=== PATIENT | male | born 1970 | race Caucasian/White ===

== ENCOUNTER 2023-06-17 10:58 | Inpatient (IN) | payer OTHER, SELFPAY ==
[2023-06-17] VITALS (13 sets, daily range): BP systolic 109–129; BP diastolic 60–93; PULSE 66–77; RESP 16–18; TEMP 36.7–37.3; O2SAT 94–100; BMI 21.2; BMI 21.8
--- NOTE | 2023-06-17 11:20 | ED.VIS.LOWEX ---
HPI History of Present Illness Chief Complaint: Lower Extremity Injury Informant: patient and spouse/S.O. Narrative Narrative: 52-year-old male presenting to the emergency room with a painful swollen left knee. Patient states that yesterday he was riding his bike. He did not notice any discomfort in the knee but over the course of an hour after getting done riding he noted swelling of the knee. He notes it is painful for him to fully straighten the knee. He thinks he may have been bitten by an insect over the medial aspect. He states they had somebody come out to the house last night that specializes in cuevas and bites and they thought that it could possibly be a reaction to that. This morning they went to the [facility] where he had a 2 view knee x-ray that showed joint effusion and he was sent to the emergency department for further evaluation. He denies any fever. He denies any prior surgeries on that joint. He denies any surgical hardware elsewhere in his body. He notes he really has not had much difficulty with his knee in the past. [facility] Medical History (Updated 06/17/23 @ 15:[address] Barrington Dudley DO) Hypertrophic cardiomyopathy Home Medications NK 06/17/23 [History Last Taken Unknown] Allergy/AdvReac Type Severity Reaction Status Date / Time No Known Allergies Allergy Verified 06/17/23 11:00 Family History (Updated 06/17/23 @ 15:[address] Barrington Dudley DO) Other Hypertrophic cardiomyopathy Surgical History no surgical history Social History Smoking Status: Never smoker ROS [facility] ED Constitutional Constitutional ED: Denies chills, fever(s) or weight loss Eyes Eyes: Denies change in vision or diplopia ENT ENT ED: Denies ear pain, rhinorrhea or sore throat Cardiovascular Cardiovascular: Denies chest pain, orthopnea, palpitations or racing heartbeat Respiratory/Chest Respiratory/Chest: Denies cough, dyspnea or orthopnea Gastrointestinal Gastrointestinal: Denies abdominal pain, diarrhea, nausea or vomiting Genitourinary Genitourinary ED: Denies dysuria, hematuria or urinary frequency Musculoskeletal Musculoskeletal: Reports other Details: Swollen painful left knee ; Denies arthralgias or myalgias Integumentary Reports other Details: Possible insect bite left knee ; Denies abscess or rash Neurologic Neurologic: Denies headache(s) or weakness Psychiatric Psychiatric: Denies anxiety, depression, suicidal ideation or suicidal thoughts Endocrine Endocrinology: Denies polydipsia, polyphagia or polyuria Allergic/Immunologic Allergic/Immunologic ED: Denies mouth swelling, tongue swelling or urticaria EXAM Physical Exam Const Vital Signs: 06/17/23 10:59 06/17/23 11:01 06/17/23 13:00 Temperature 98.0 F Temperature Source Temporal Pulse Rate 74 74 75 Respiratory Rate 16 16 18 Blood Pressure 109/93 H 109/93 H 120/66 Blood Pressure Mean 98 98 84 Pulse Ox 100 100 95 Oxygen Delivery Method Room Air Room Air 06/17/23 13:34 06/17/23 13:45 06/17/23 13:46 Temperature Temperature Source Pulse Rate Respiratory Rate Blood Pressure 115/60 Blood Pressure Mean 77 Pulse Ox 94 94 Oxygen Delivery Method 06/17/23 14:17 06/17/23 14:30 06/17/23 14:45 Temperature Temperature Source Pulse Rate Respiratory Rate Blood Pressure 129/72 H 122/77 H 119/80 Blood Pressure Mean 88 89 91 Pulse Ox Oxygen Delivery Method 06/17/23 15:00 Temperature Temperature Source Pulse Rate Respiratory Rate Blood Pressure 119/69 Blood Pressure Mean 83 Pulse Ox Oxygen Delivery Method Positive well nourished and well developed General Appearance ED: well developed and NAD HEENT Reports normocephalic, head/scalp atraumatic and moist mucous membranes Eyes PERRL and EOMs intact bilaterally Neck full ROM, no lymphadenopathy, supple and no JVD Resp normal respiratory effort and clear to auscultation bilaterally Cardio regular rate, regular rhythm and no murmurs GI normal to inspection, nondistended, normoactive bowel sounds and non-tender Palpation: soft Back/Spine no CVA tenderness and normal ROM Extremity Extremity Narrative: The left knee does palpate a joint effusion. There is loss of normal contours of the patella. There is some mild erythema and excoriated 1 to 2 mm spot on the medial aspect of the knee that is surrounded by approximately 4 cm of blanching erythema.. The knee joint itself is not hot or warm to the touch. There is no distal swelling. He prefers to keep the knee in a slightly flexed position. He is able to fully straighten it though he notes discomfort. His position of comfort is about 15 degrees of knee flexion. General Extremety ED: Negative for edema General Extremity: Negative for edema Neuro oriented x3 and CN's II-XII intact bilaterally Sensorium / Orientation: alert Motor Exam: strength 5/5 throughout Psych mental status grossly normal Mood & Affect: Negative for depressed or tearful Skin Trauma: Negative for abrasion or laceration MDM MDM MDM Narrative Medical decision making narrative: Patient provided informed written consent for arthrocentesis. The entirety of the knee and surrounding area was prepped with Betadine and allowed to dry. It was draped with sterile towels. Using sterile technique a small wheal was raised over the lateral superior aspect of the knee joint. An 18-gauge needle was then used to enter the joint space and approximately 72 cc of yellow fluid was removed. This was sent to the lab for analysis. The knee was then washed to remove the Betadine Band-Aid applied as well as Dipak wrap. Laboratory analysis demonstrates no crystals. 56.6 thousand white cells were noted. Gram stain shows no bacteria. I spoke with orthopedics. White count is 8.1 with 71.6% neutrophils. ESR 15. Glucose 93 creatinine 0.79. Concern is for possible septic arthritis. Recommendation is for admission with IV antibiotics versus outpatient follow-up on antibiotics tomorrow morning. I spoke with the patient and his . The preference would be for admission History & Record Review Discussion w/independent historian: Patient and Family Lab Data Attestation: I reviewed the patient's lab results. Labs: Laboratory Results - last 24 hr 06/17/23 06/17/23 11:50 15:00 WBC 8.1 RBC 4.36 L Hgb 13.1 Hct 39.5 L MCV 90.6 MCH 30.0 MCHC 33.2 RDW Std Deviation 44.7 H RDW Coeff of Ramon 13.5 Plt Count 195 MPV 8.9 Immature Gran % (Auto) 0.200 Neut % (Auto) 71.6 H Lymph % (Auto) 14.7 L [place] % (Auto) 12.3 H Eos % (Auto) 1.0 Baso % (Auto) 0.2 Absolute Neuts (auto) 5.8 Absolute Lymphs (auto) 1.18 Nucleated RBC % 0 ESR 15 Sodium 138 Potassium 3.9 Chloride 107 Carbon Dioxide 27.0 Anion Gap 4 L BUN 16 Creatinine 0.79 Estim Creat Clear Calc 96.01 Est GFR (MDRD) Af Amer 131 Est GFR (MDRD) Non-Af 108 BUN/Creatinine Ratio 20.2 H Glucose 93 Calcium 9.1 Fluid Crystals NO CRYSTALS SEEN Fluid Crystal Source SYNOVIAL Fl Crystal Path Review Will follow Synovial Source Not Reportable Synovial Color Yellow Synovial Appearance Purulent Synovial Viscosity Mod. Viscous Synovial WBC 56.5900 H Synovial RBC 0.[address] H Synovial Tot Cell Ct 56.6280 H Synov Polynuclear WBCs 57.347 Synov Mononuclear WBCs 3.337 Synovial Neutrophils 91 H Synovial Lymphocytes 2 Synovial Monocytes 7 Synovial Polynuclear % 94.5 Synovial Mononuclear % 5.[address] Comment Reviewed Management Discussion w/another healthcare provider: Hospitalist (Dr. Dudley) and [employer] (Orthopedics (Dr. Vanessa Price)) Discharge Plan Dx/Rx/DC Orders Clinical Impression: Effusion, left knee, Acute pain of left knee Disposition Disposition: Acute Care [facility]
[2023-06-17] MEDS: Lidocaine 1% (20 ml mdv) 20 ML Vial INFILT (11:40)
[2023-06-17 12:35] LABS: Synovial Fld Mononuclear WBC # 3.337 10^3/ul; Synovial Fld Mononuclear WBC % 5.5 %; Synovial Fld Polynuclear WBC # 57.347 10^3/uL; Synovial Fld Polynuclear WBC % 94.5 %
[2023-06-17 12:40] LABS: RBC /Synovial Fluid 0.003 10^6/uL (0)
[2023-06-17 13:16] LABS: AUTO B FLUID DILUENT BKGD CT WBC <0.1 RBC <0.01 (W<.1,R<.01); CRYSTALS, BODY FLUID NO CRYSTALS SEEN
[2023-06-17 13:17] LABS: Appearance /Synovial Fluid Purulent (CLEAR); Color / Synovial Fluid Yellow (Pale Yellow); Source- Body Fluid SYNOVIAL; Viscosity / Synovial Fluid Mod. Viscous (HIGH)
[2023-06-17 13:39] LABS: Lymph 2 %; Monocyte /Synovial Fluid 7 %; Neutrophil 91 % (0-25)
[2023-06-17 13:42] LABS: Pathologist Review Will follow
[2023-06-17] MEDS: Ceftriaxone 1 GM/50 ML BAG IV (15:24)
[2023-06-17 15:27] LABS: Erythrocyte Sedimentation Rate 15 mm/hr (0-20)
[2023-06-17 15:30] LABS: Absolute Lymphocyte Count 1.18 X10^3/uL (0.83-4.51); Absolute Neutrophil Count 5.8 X10^3/uL (2.0-7.7); Basophil# 0.02 X10^3/uL; Basophil% 0.2 % (0-1); Eosinophil# 0.08 X10^3/uL; Hematocrit 39.5 % (40-54); Hemoglobin 13.1 g/dL (13.0-16.5); Lymphocyte # 1.18 X10^3/ul (0.83-4.51); Lymphocyte % 14.7 % (19-41); Mean Corp Hgb Conc 33.2 g/dL (32-36); Mean Corpuscular Volume 90.6 fL (80-94); Mean Platelet Vol. 8.9 fl (6.2-12.0); Monocyte# 0.99 X10^3/uL; Monocyte% 12.3 % (0-10); NRBC Flagged by Analyzer 0 % (0-5); Neutrophil # 5.76 X10^3/uL (2.7-7.7); Neutrophil % 71.6 % (47-70); Platelet Count 195 K/mm3 (150-450); RBC Distribution Width CV 13.5 % (11.6-14.6); RBC Distribution Width SD 44.7 fl (35.1-43.9); Red Blood Count 4.36 M/mm3 (4.6-6.2); White Blood Count 8.1 K/mm3 (4.4-11.0)
[2023-06-17 15:39] LABS: Anion Gap 4 (5-15); BUN 16 mg/dL (7-18); BUN/Creat Ratio 20.2 RATIO (10-20); Calcium,Total 9.1 mg/dL (8.5-10.1); Chloride 107 mmol/L (98-107); Creatinine, Serum 0.79 mg/dL (0.70-1.30); EST Glomerular Filtration Rate 108 mL/min (>60); Est Glom Filt Rate - Afr Amer 131 mL/min (>60); Estimated Creatinine Clearance 96.01 ml/min; Glucose 93 mg/dL (74-106); Potassium 3.9 mmol/L (3.5-5.1); Sodium Level 138 mmol/L (136-145)
--- NOTE | 2023-06-17 15:39 | HP.PCM.HOS_ITS ---
HPI - General General Date of Service: 06/17/23 Chief Complaint: Left knee effusion HPI Narrative PAIGE ORELLANA, is a 52 M who presents with left knee pain and swelling. Symptoms began last night and progressed throughout the day. Patient denies any trauma. Thinks that he may have had a bug bite on his leg that may have precipitated this. Patient presented to the emergency room and he underwent an arthrocentesis that showed white count of 56.6 thousand. Patient received ceftriaxone and vancomycin in the emergency room. The emergency room physician spoke with Dr. Golden Price who said he would see the patient in consultation. [facility] Medical History (Updated 06/17/23 @ 15:[address] Barrington Dudley DO) Hypertrophic cardiomyopathy Home Medications NK 06/17/23 [History Last Taken Unknown] Allergy/AdvReac Type Severity Reaction Status Date / Time No Known Allergies Allergy Verified 06/17/23 11:00 Family History (Updated 06/17/23 @ 15:[address] Barrington Dudley DO) Other Hypertrophic cardiomyopathy no surgical history Social History Smoking Status: Never smoker ROS ROS Narrative All review of systems were negative except as mentioned above in the history of present illness and the other review of systems. Vital Signs Vital Signs Vital Signs: 06/17/23 10:59 06/17/23 11:01 06/17/23 13:00 Temperature 36.7 C Temperature Source Temporal Pulse Rate 74 74 75 Respiratory Rate 16 16 18 Blood Pressure 109/93 H 109/93 H 120/66 Blood Pressure Mean 98 98 84 Pulse Ox 100 100 95 Oxygen Delivery Method Room Air Room Air 06/17/23 13:34 06/17/23 13:45 06/17/23 13:46 Temperature Temperature Source Pulse Rate Respiratory Rate Blood Pressure 115/60 Blood Pressure Mean 77 Pulse Ox 94 94 Oxygen Delivery Method 06/17/23 14:17 06/17/23 14:30 06/17/23 14:45 Temperature Temperature Source Pulse Rate Respiratory Rate Blood Pressure 129/72 H 122/77 H 119/80 Blood Pressure Mean 88 89 91 Pulse Ox Oxygen Delivery Method 06/17/23 15:00 Temperature Temperature Source Pulse Rate Respiratory Rate Blood Pressure 119/69 Blood Pressure Mean 83 Pulse Ox Oxygen Delivery Method Weight Weight: 63.503 kg Body Mass Index (BMI) 21.2 Physical Exam Const alert and no apparent distress HEENT normocephalic and head/scalp atraumatic Resp normal respiratory effort, no retractions, no use of accessory muscles and clear to auscultation bilaterally Cardio regular rate, regular rhythm, S1 normal heart sound and S2 normal heart sound GI normal to inspection, nondistended, normoactive bowel sounds, soft to palpation, non-tender, non-distended and hepatosplenomegaly Extremity Extremity Narrative: Left knee with swelling as compared to the right. Not warm nor red. Neuro Sensorium / Orientation: awake and alert Results Lab / Micro Data 06/17/23 15:00 06/17/23 15:00 Labs: Laboratory Results - last 24 hr 06/17/23 11:50: Fluid Crystals NO CRYSTALS SEEN, Fluid Crystal Source SYNOVIAL, Fl Crystal Path Review Will follow, Synovial Source Not Reportable, Synovial C olor Yellow, Synovial Appearance Purulent, Synovial Viscosity Mod. Viscous, Synovial WBC 56.5900 H, Synovial RBC 0.003 H, Synovial Tot Cell Ct 56.6280 H, Synov Polynuclear WBCs 57.347, Synov Mononuclear WBCs 3.337, Synovial Neutrophils 91 H, Synovial Lymphocytes 2, Synovial Monocytes 7, Synovial Polynuclear % 94.5, Synovial Mononuclear % 5.5, Synovial Path Comment May follow 06/17/23 15:00: WBC 8.1, RBC 4.36 L, Hgb 13.1, Hct 39.5 L, MCV 90.6, MCH 30.0, MCHC 33.2, RDW Std Deviation 44.7 H, RDW Coeff of Ramon 13.5, Plt Count 195, MPV 8.9, Immature Gran % (Auto) 0.200, Neut % (Auto) 71.6 H, Lymph % (Auto) 14.7 L, [place] % (Auto) 12.3 H, Eos % (Auto) 1.0, Baso % (Auto) 0.2, Absolute Neuts (auto) 5.8, Absolute Lymphs (auto) 1.18, Nucleated RBC % 0, ESR 15, Sodium 138, Potassium 3.9, Chloride 107, Carbon Dioxide 27.0, Anion Gap 4 L, BUN 16, Creatinine 0.79, Estim Creat Clear Calc 96.01, Est GFR (MDRD) Af Amer 131, Est GFR (MDRD) Non-Af 108, BUN/Creatinine Ratio 20.2 H, Glucose 93, Calcium 9.1 Micro: Microbiology 06/17/23 11:50 Fluid - Synovial (joint) Gram Stain - Final Assessment & Plan Assessment/Plan (1) Septic arthritis of knee, left: PLAN: Plan Suspected septic arthritis of the left knee * White count on the synovial fluid was 56,000, culture pending. Crystals negative. * Patient received vancomycin and ceftriaxone in the emergency room. Will continue vancomycin * Consult infect disease as well as orthopedics. Hypertrophic cardiomyopathy * Per history patient was checked because of his family history. On no current medications. Recommend outpatient cardiology follow-up. VTE prophylaxis with SCDs. Holding chemical prophylaxis in anticipation of potential surgery. Charges/Coding Visit Charges Inpatient E&M: 21268 Init Hosp L2
[2023-06-17] MEDS: Vancomycin HCl 1,500 MG in 0.9% Normal Saline (500mL Bag) 500 ML 250 MG IV (15:42)
--- NOTE | 2023-06-17 16:00 | NURSING ---
MED SURG RUDOLPH LT KNEE EFFUSION
[2023-06-17 16:12] LABS: Pathologist Comment Reviewed
--- NOTE | 2023-06-17 17:03 | PCM.RX.CS ---
Consult Antibiotic Management Pharmacy has been consulted to manage selected antibiotic: Vancomycin Type of Intervention Type of Consult: New start Suspected Infection Suspected Infection: Other (septic arthritis) Labs Labs: Sodium 138 mmol/L (136-145) 06/17/23 15:00 Potassium 3.9 mmol/L (3.5-5.1) 06/17/23 15:00 Chloride 107 mmol/L (98-107) 06/17/23 15:00 Carbon Dioxide 27.0 mmol/L (21.0-32.0) 06/17/23 15:00 Anion Gap 4 (5-15) L 06/17/23 15:00 BUN 16 mg/dL (7-18) 06/17/23 15:00 Creatinine 0.79 mg/dL (0.70-1.30) 06/17/23 15:00 Est GFR (MDRD) Af Amer 131 mL/min (>60) 06/17/23 15:00 Est GFR (MDRD) Non-Af 108 mL/min (>60) 06/17/23 15:00 BUN/Creatinine Ratio 20.2 RATIO (10-20) H 06/17/23 15:00 Glucose 93 mg/dL (74-106) 06/17/23 15:00 Microbiology Microbiology: Microbiology 06/17/23 11:50 Fluid - Synovial (joint) Gram Stain - Final Pharmacy Plan for Drug Dosing Pharmacy Plan for Drug Dosing: NEW START IV VANCOMYCIN Consulting Physician: RUDOLPH Indication: Septic arthritis Goal Trough: 15-20 mg/dL SrCr: 0.79 mg/dl CrCl: 96 ml/min Comments: initial dose given of 1500mg given 06/16 @ 1542 Vancomycin Dose: Will start 1250mg q12 and get a trough prior to 4th total dose Pending Level: 06/19/23 @ 0330 Pharmacy Service will continue to monitor and adjust dosing as required.
--- NOTE | 2023-06-17 18:58 | CON.PCM.OR_ITS ---
HPI Consult Data Date of Consult: 06/17/23 HPI Narrative HPI Narrative: PAIGE ORELLANA, is a 52 M who presents with left knee pain and swelling. He states on June 16, 2023 he was noticing knee stiffness and discomfort primarily at the medial knee. Swelling and pain increased up to 9 out of 10. Patient did try some pain relieving salve that may have made things worse. They had a burn specialist to help them with some salve that did not help. He denies pu ncturing the skin. He denies trauma. He denies any other known sites of infection. Pain currently 3 out of 10. Knee stiffness slightly better after aspiration. He denies previous knee injections. He does have a history of some mild knee arthritis treated with shockwave treatments about 1 year ago. [facility] Medical History Hypertrophic cardiomyopathy Home Medications NK 06/17/23 [History Last Taken Unknown] Allergy/AdvReac Type Severity Reaction Status Date / Time No Known Allergies Allergy Verified 06/17/23 11:00 Family History Other Hypertrophic cardiomyopathy Surgical History no surgical history Social History Smoking Status: Never smoker ROS ROS Narrative Patient does wear eyeglasses. He denies any recent changes to eyes ears nose or throat heart or lungs bowel or bladder. Denies any infections Vital Signs Vital Signs Vital Signs: 06/17/23 10:59 06/17/23 11:01 06/17/23 13:00 Temperature 98.0 F Temperature Source Temporal Pulse Rate 74 74 75 Respiratory Rate 16 16 18 Respiratory Effort Respiratory Depth Respiratory Pattern Blood Pressure 109/93 H 109/93 H 120/66 Blood Pressure Mean 98 98 84 Blood Pressure Source Blood Pressure Position Blood Pressure Location Pulse Ox 100 100 95 Oxygen Delivery Method Room Air Room Air 06/17/23 13:34 06/17/23 13:45 06/17/23 13:46 Temperature Temperature Source Pulse Rate Respiratory Rate Respiratory Effort Respiratory Depth Respiratory Pattern Blood Pressure 115/60 Blood Pressure Mean 77 Blood Pressure Source Blood Pressure Position Blood Pressure Location Pulse Ox 94 94 Oxygen Delivery Method 06/17/23 14:17 06/17/23 14:30 06/17/23 14:45 Temperature Temperature Source Pulse Rate Respiratory Rate Respiratory Effort Respiratory Depth Respiratory Pattern Blood Pressure 129/72 H 122/77 H 119/80 Blood Pressure Mean 88 89 91 Blood Pressure Source Blood Pressure Position Blood Pressure Location Pulse Ox Oxygen Delivery Method 06/17/23 15:00 06/17/23 16:17 06/17/23 16:43 Temperature 98.3 F 98.3 F Temperature Source Oral Pulse Rate 77 71 Respiratory Rate 16 18 Respiratory Effort Respiratory Depth Respiratory Pattern Blood Pressure 119/69 121/80 H 125/79 H Blood Pressure Mean 83 93 94 Blood Pressure Source Monitor Blood Pressure Position Semi-Fowlers Blood Pressure Location Right Arm Pulse Ox 99 96 Oxygen Delivery Method Room Air 06/17/23 16:56 Temperature Temperature Source Pulse Rate Respiratory Rate Respiratory Effort Normal Non-Labored Respiratory Depth Normal Respiratory Pattern Normal Blood Pressure Blood Pressure Mean Blood Pressure Source Blood Pressure Position Blood Pressure Location Pulse Ox Oxygen Delivery Method Room Air Weight Weight: 65.091 kg Body Mass Index (BMI) 21.8 Physical Exam Narrative Left knee has a large effusion. Left knee motion is 10-80 degrees. Left knee has some warmth and redness. No expressible drainage. Skin is intact. No calf pain or swelling. Negative Homans' sign. Legs are neurovascular intact. He is able to easily do a straight leg raise on the left. No hip pain with motion. X-rays reviewed showing knee effusion, no obvious acute fracture or dislocation. No severe arthritis. Laboratory work reviewed showing an elevated synovial white blood cell count of 56,000. 91% neutrophils. ESR within normal limits at 15. Lab / Micro Data Attestation: I reviewed the patient's lab results. 06/17/23 15:00 06/17/23 15:00 Labs: Laboratory Results - last 24 hr 06/17/23 11:50: Fluid Crystals NO CRYSTALS SEEN, Fluid Crystal Source SYNOVIAL, Fl Crystal Path Review Will follow, Synovial Source Not Reportable, Synovial Color Yellow, Synovial Appearance Purulent, Synovial Viscosity Mod. Viscous, Synovial WBC 56.5900 H, Synovial RBC 0.003 H, Synovial Tot Cell Ct 56.6280 H, Synov Polynuclear WBCs 57.347, Synov Mononuclear WBCs 3.337, Synovial Neutrophil s 91 H, Synovial Lymphocytes 2, Synovial Monocytes 7, Synovial Polynuclear % 94.5, Synovial Mononuclear % 5.5, Synovial Path Comment Reviewed 06/17/23 15:00: WBC 8.1, RBC 4.36 L, Hgb 13.1, Hct 39.5 L, MCV 90.6, MCH 30.0, MCHC 33.2, RDW Std Deviation 44.7 H, RDW Coeff of Ramon 13.5, Plt Count 195, MPV 8.9, Immature Gran % (Auto) 0.200, Neut % (Auto) 71.6 H, Lymph % (Auto) 14.7 L, [place] % (Auto) 12.3 H, Eos % (Auto) 1.0, Baso % (Auto) 0.2, Absolute Neuts (auto) 5.8, Absolute Lymphs (auto) 1.18, Nucleated RBC % 0, ESR 15, Sodium 138, Potassium 3.9, Chloride 107, Carbon Dioxide 27.0, Anion Gap 4 L, BUN 16, Creatinine 0.79, Estim Creat Clear Calc 96.01, Est GFR (MDRD) Af Amer 131, Est GFR (MDRD) Non-Af 108, BUN/Creatinine Ratio 20.2 H, Glucose 93, Calcium 9.1 Micro: Microbiology 06/17/23 11:50 Fluid - Synovial (joint) Gram Stain - Final Assessment & Plan Assessment/Plan (1) Acute pain of left knee: (2) Effusion, left knee: PLAN: His diagnosis and treatment options regarding his painful left knee effusion discussed with him at length. He understands this may be an acute bacterial infection involving his left knee joint. Possibility of gout or other inflammatory process also discussed. He understands at this point we are tentatively planning on arthroscopic irrigation debridement of his left knee tomorrow. Possible drain placement. patient had eaten just prior to coming to the emergency room this afternoon. Risk of surgery including but not limited to from operative or postoperative complications. Risk of anesthetic complications such as heart attacks, strokes, seizures, or . Risk of infections. Risk of damage to nerves arteries tendons. Risk of inadvertent fractures or dislocations. Risk of bone or wound healing complications. Possibility of nonunion malunion pain stiffness weakness. Possible need for further surgery such as hardware removal. Risk of DVT PE and other potential complications could lead to or disability explained. No guarantees were stated or implied. All of their questions were answered. Appropriate informed consent was obtained and signed for surgical intervention. We are awaiting input from the infectious disease doctor. I will repeat a ESR in the morning. Also order a CRP. Also repeat CBC. Cultures are pending, knee fluid and blood cultures.
[2023-06-18] VITALS (11 sets, daily range): BP systolic 101–129; BP diastolic 62–86; PULSE 65–82; RESP 12–18; TEMP 36.3–36.9; O2SAT 93–98
[2023-06-18] MEDS: 0.9% Saline Lock 10 ML Syringe IV ×2 (04:00→11:10)
[2023-06-18] MEDS: Vancomycin HCl 1,250 MG in 0.9% Normal Saline (250mL Bag) 250 ML 167 MG IV ×2 (04:00→16:54)
--- NOTE | 2023-06-18 05:55 | EKG12_ITS ---
Test Reason : PRE OP Blood Pressure : / mmHG Vent. Rate : 080 BPM Atrial Rate : 080 BPM P-R Int : 168 ms QRS Dur : 078 ms QT Int : 356 ms P-R-T Axes : 066 061 070 degrees QTc Int : 410 ms Normal sinus rhythm Minimal voltage criteria for LVH, may be normal variant ( Sokolow-Meyers ) Borderline ECG No previous ECGs available Confirmed by AARON PRICE, FRANCIS ([id number]), web editor MARIAN CARROLL ([id number]) on 06/18/2023 8:51:43 AM Referred By: Confirmed By:FRANCIS WALKER MD
[2023-06-18 06:25] LABS: Absolute Lymphocyte Count 1.25 X10^3/uL (0.83-4.51); Absolute Neutrophil Count 4.3 X10^3/uL (2.0-7.7); Basophil# 0.03 X10^3/uL; Basophil% 0.5 % (0-1); Eosinophil# 0.16 X10^3/uL; Eosinophils% 2.5 % (0-5); Erythrocyte Sedimentation Rate 25 mm/hr (0-20); Hematocrit 37.7 % (40-54); Hemoglobin 12.4 g/dL (13.0-16.5); Lymphocyte # 1.25 X10^3/ul (0.83-4.51); Lymphocyte % 19.2 % (19-41); Mean Corp Hgb Conc 32.9 g/dL (32-36); Mean Corpuscular Hgb 30.2 pg (27.0-32.0); Mean Corpuscular Volume 91.7 fL (80-94); Mean Platelet Vol. 8.8 fl (6.2-12.0); Monocyte# 0.68 X10^3/uL; Monocyte% 10.5 % (0-10); NRBC Flagged by Analyzer 0 % (0-5); Neutrophil # 4.34 X10^3/uL (2.7-7.7); Neutrophil % 66.7 % (47-70); Platelet Count 186 K/mm3 (150-450); RBC Distribution Width CV 13.7 % (11.6-14.6); RBC Distribution Width SD 46.5 fl (35.1-43.9); Red Blood Count 4.11 M/mm3 (4.6-6.2); White Blood Count 6.5 K/mm3 (4.4-11.0)
[2023-06-18 06:37] LABS: Anion Gap 3 (5-15); BUN 14 mg/dL (7-18); BUN/Creat Ratio 21.1 RATIO (10-20); Calcium,Total 8.4 mg/dL (8.5-10.1); Chloride 107 mmol/L (98-107); Creatinine, Serum 0.66 mg/dL (0.70-1.30); EST Glomerular Filtration Rate 133 mL/min (>60); Est Glom Filt Rate - Afr Amer 160 mL/min (>60); Glucose 113 mg/dL (74-106); Sodium Level 138 mmol/L (136-145)
[2023-06-18] MEDS: Ceftriaxone 2 GM in 0.9% Normal Saline (50mL MB+) 50 ML IV (11:11)
--- NOTE | 2023-06-18 11:20 | CON.PCM.ID_ITS ---
Assessment & Plan Assessment/Plan (1) Septic arthritis of knee, left: PLAN: Tap shows 56k wbc, 91% neutrophils. Bcx pending. Fluid cx pending. Will cont vanc/ceftriaxone. OR planned. Will follow, thank you HPI Consult Data Date of Consult: 06/18/23 HPI Narrative Reason for Consultation: septic arthritis HPI Narrative: PAIGE ORELLANA, is a 52 M who presented 06/16 with two days of L knee pain, swelling, redness, and warmth on medial aspect. No fever or chills. Pain was moderate, sharp, worse with movement. Came to ED, seen by ortho, aspiration done, admitted on vanc/ceftriaxone. Knee feeling better slightly this AM. Full ROS performed and neg except as noted above PFSH Medical History Hypertrophic cardiomyopathy Home Medications NK 06/17/23 [History Last Taken Unknown] Allergy/AdvReac Type Severity Reaction Status Date / Time No Known Allergies Allergy Verified 06/17/23 11:00 Family History Other Hypertrophic cardiomyopathy Surgical History no surgical history Social History Smoking Status: Never smoker Physical Exam Const alert, oriented x3 and no apparent distress General Appearance: cooperative HEENT normocephalic and head/scalp atraumatic Eyes PERRL and EOMs intact bilaterally Neck supple and No nodes Resp normal air movement and clear to auscultation bilaterally Cardio regular rate and regular rhythm GI soft to palpation, non-tender and non-distended Extremity General Extremity: Negative for edema Skin Skin Narrative: L knee swelling, warmth, tenderness Neuro CN's II-XII intact bilaterally Lab / Micro Data Attestation: I reviewed the patient's lab results. 06/18/23 06:03 06/18/23 06:03 Labs: Laboratory Results - last 24 hr 06/17/23 11:50: Fluid Crystals NO CRYSTALS SEEN, Fluid Crystal Source SYNOVIAL, Fl Crystal Path Review Will follow, Synovial Source Not Reportable, Synovial Color Yellow, Synovial Appearance Purulent, Synovial Viscosity Mod. Viscous, Synovial WBC 56.5900 H, Synovial RBC 0.003 H, Synovial Tot Cell Ct 56.6280 H, Synov Polynuclear WBCs 57.347, Synov Mononuclear WBCs 3.337, Synovial Neutrophils 91 H, Synovial Lymphocytes 2, Synovial Monocytes 7, Synovial Polynuclear % 94.5, Synovial Mononuclear % 5.5, Synovial Path Comment Reviewed 06/17/23 15:00: WBC 8.1, RBC 4.36 L, Hgb 13.1, Hct 39.5 L, MCV 90.6, MCH 30.0, MCHC 33.2, RDW Std Deviation 44.7 H, RDW Coeff of Ramon 13.5, Plt Count 195, MPV 8.9, Immature Gran % (Auto) 0.200, Neut % (Auto) 71.6 H, Lymph % (Auto) 14.7 L, [place] % (Auto) 12.3 H, Eos % (Auto) 1.0, Baso % (Auto) 0.2, Absolute Neuts (auto) 5.8, Absolute Lymphs (auto) 1.18, Nucleated RBC % 0, ESR 15, Sodium 138, Potassi um 3.9, Chloride 107, Carbon Dioxide 27.0, Anion Gap 4 L, BUN 16, Creatinine 0.79, Estim Creat Clear Calc 96.01, Est GFR (MDRD) Af Amer 131, Est GFR (MDRD) Non-Af 108, BUN/Creatinine Ratio 20.2 H, Glucose 93, Calcium 9.1 06/18/23 06:03: WBC 6.5, RBC 4.11 L, Hgb 12.4 L, Hct 37.7 L, MCV 91.7, MCH 30.2, MCHC 32.9, RDW Std Deviation 46.5 H, RDW Coeff of Ramon 13.7, Plt Count 186, MPV 8.8, Immature Gran % (Auto) 0.600, Neut % (Auto) 66.7, Lymph % (Auto) 19.2, [place] % (Auto) 10.5 H, Eos % (Auto) 2.5, Baso % (Auto) 0.5, Absolute Neuts (auto) 4.3, Absolute Lymphs (auto) 1.25, Nucleated RBC % 0, ESR 25 H, Sodium 138, Potassium 4.0, Chloride 107, Carbon Dioxide 28.0, Anion Gap 3 L, BUN 14, Creatinine 0.66 L , Estim Creat Clear Calc 117.80, Est GFR (MDRD) Af Amer 160, Est GFR (MDRD) Non- Af 133, BUN/Creatinine Ratio 21.1 H, Glucose 113 H, Calcium 8.4 L, C-React Prot Ext Range 59.10 H Micro: Microbiology 06/17/23 11:50 Fluid - Synovial (joint) Gram Stain - Final
--- NOTE | 2023-06-18 11:30 | CASEMGMT ---
RN?CM?MANAGER ADMINISTRATION?CM?to room to meet with patient for initial transition planning/care coordination?assessment.?RN?CM?introduced self and role at [facility].? Pt voices understanding and consents to?assessment?at this time.? Pt resting in bed in no distress at this time.? Pt is A/O at this time and answers all questions appropriately.?? Care providers, pharmacy, and demographics verified/updated at this time. PCP: No PCP. He declines wanting list of local PCP's, stating he knows where to go, and would most likely see Dr العراقي. Specialists: None [facility]erred [facility]acy: [facility] Insurance: [facility] Prescription Benefit:?none LNOK: , Sussy Living Arrangements: Lives w/ and 2 children (ages 14 and 16) in 2-story home w/a basement and a few steps to enter. Independent @ baseline. can assist, if needed. Transportation:? Hire drivers. Brother drives. He states his brother will most likely be the one to take him home @ d/c. DME: ?States has the following DME:?Pt states he does not use AD @ his baseline. He does have a cane available that he used yesterday only. He does not have a walker. He states if he needs a walker @ d/c that he would go to the [facility] in [place] and they could stop there on his way home. He was provided w/the address and contact info. He denies need for other DME at this time. Pt states no need for further DME at this time.? HHC/SNF: No hx of either. Per ADELA Vega RN CM, Dr Lindsay/ID, states pt will most likely need IV atb's @ discharge. Discussed this possibility w/pt and questions answered. He states he does not want to go to a SNF, he wishes to discharge home. He states his would be teachable to do IV administration. He would like [facility] and declines wanting a list of other C options unless they are not able to accept. Pt made aware cost per visit can be provided to him. Discussed infusion companies, he declines having a preference, and states okay with [facility]. Pt wishes to return home and states has no further concerns with going home at time of discharge.? ?CM?to follow for any further discharge planning/needs.? Pt voices no further concerns/needs at this time.? Advised pt to ask for?CM?if any further questions/concerns/needs arise.? Voices understanding. PLAN:??Home. Follow for possible HHC for IV atb's. PT/OT evals pending. Charlotte BSN?RN?CM
[2023-06-18] MEDS: 0.9% Normal Saline (1000mL) 1,000 ML 15 ML IV (12:36)
--- NOTE | 2023-06-18 13:22 | PCM.PN.HOSP ---
Reason for Visit Reason for Visit: Diagnoses Pyogenic arthritis, unspecified (06/17/23) Effusion, left knee (06/17/23) Pain in left knee (06/17/23) Subjective Subjective Patient admitted yesterday for acute onset left knee pain and swelling concerning for a septic joint. Started on IV antibiotics in the ED and both infectious disease and orthopedics were consulted. Patient seen at bedside this morning. Dr. Mahan was leaving the room when I arrived and noted that the plan was for a procedure this afternoon for irrigation and debridement of suspected septic joint. On my encounter, patient was sitting up comfortably in bed, conversing normally, no acute distress. Patient was very pleasant with conversation. He reported continued left knee swelling this morning but the pain was moderately improved from yesterday. He had been able to walk around the room this morning without significant issue. He denied any fevers or chills. Denied any other acute concerns at this time. Objective Data Objective Data Vital Signs: Vital Signs Temp Pulse Resp BP Pulse Ox O2 Del Method 98.5 F 75 16 101/62 96 Room Air 06/18/23 12:22 06/18/23 12:22 06/18/23 12:22 06/18/23 12:22 06/18/23 12:22 06/18/23 12:22 Oxygen Delivery Method Room Air Weight: 65.091 kg Body Mass Index (BMI) 21.8 Intake & Output: Intake and Output for Last 24 Hours 06/16/23 06/17/23 06/18/23 23:59 23:59 23:59 Intake Total 940 / 1180 566 / 566 Balance 940 / 1180 566 / 566 Lab / Micro Data 06/18/23 06:03 06/18/23 06:03 Labs: Laboratory Results - last 24 hr 06/17/23 11:50: Fl Crystal Path Review Will follow, Synovial Source Not Reportable, Synovial Neutrophils 91 H, Synovial Lymphocytes 2, Synovial Monocytes 7, Synovial Path Comment Reviewed 06/17/23 15:00: WBC 8.1, RBC 4.36 L, Hgb 13.1, Hct 39.5 L, MCV 90.6, MCH 30.0, MCHC 33.2, RDW Std Deviation 44.7 H, RDW Coeff of Ramon 13.5, Plt Count 195, MPV 8.9, Immature Gran % (Auto) 0.200, Neut % (Auto) 71.6 H, Lymph % (Auto) 14.7 L, [place] % (Auto) 12.3 H, Eos % (Auto) 1.0, Baso % (Auto) 0.2, Absolute Neuts (auto) 5.8, Absolute Lymphs (auto) 1.18, Nucleated RBC % 0, ESR 15, Sodium 138, Potassium 3.9, Chloride 107, Carbon Dioxide 27.0, Anion Gap 4 L, BUN 16, Creatinine 0.79, Estim Creat Clear Calc 96.01, Est GFR (MDRD) Af Amer 131, Est GFR (MDRD) Non-Af 108, BUN/Creatinine Ratio 20.2 H, Glucose 93, Calcium 9.1 06/18/23 06:03: WBC 6.5, RBC 4.11 L, Hgb 12.4 L, Hct 37.7 L, MCV 91.7, MCH 30.2, MCHC 32.9, RDW Std Deviation 46.5 H, RDW Coeff of Ramon 13.7, Plt Count 186, MPV 8.8, Immature Gran % (Auto) 0.600, Neut % (Auto) 66.7, Lymph % (Auto) 19.2, [place] % (Auto) 10.5 H, Eos % (Auto) 2.5, Baso % (Auto) 0.5, Absolute Neuts (auto) 4.3, Absolute Lymphs (auto) 1.25, Nucleated RBC % 0, ESR 25 H, Sodium 138, Potassium 4.0, Chloride 107, Carbon Dioxide 28.0, Anion Gap 3 L, BUN 14, Creatinine 0.66 L, Estim Creat Clear Calc 117.80, Est GFR (MDRD) Af Amer 160, Est GFR (MDRD) Non-Af 133, BUN/Creatinine Ratio 21.1 H, Glucose 113 H, Calcium 8.4 L, C-React Prot Ext Range 59.10 H Micro: Microbiology 06/17/23 11:50 Fluid - Synovial (joint) Gram Stain - Final Physical Exam Const alert, oriented x3, no apparent distress, average body habitus, healthy appearing and well nourished Constitutional Narrative: Pleasant middle-age male, sitting up comfortably in bed, conversing normally, no acute distress. General Appearance: cooperative, comfortable, well kempt and well developed HEENT normocephalic, head/scalp atraumatic, hearing grossly normal bilaterally, nasal mucous membranes and turbinates normal and moist oral mucous membranes Eyes PERRL, EOMs intact bilaterally and conjunctivae normal Neck full ROM Chest inspection of chest normal Resp normal respiratory effort, normal air movement, no use of accessory muscles and clear to auscultation bilaterally Cardio regular rate, regular rhythm, no murmurs and peripheral pulses 2+ throughout GI normal to inspection, nondistended, normoactive bowel sounds, soft to palpation, non-tender and non-distended Back/Spine normal ROM Extremity Extremity Narrative: Moderate left knee swelling noted with mild tenderness to palpation throughout. No erythema noted. Knee not warm to the touch. Skin no rashes or lesions noted Neuro moves all extremities and no focal motor deficits Speech: speech normal Psych mental status grossly normal Assessment & Plan Assessment/Plan (1) Septic arthritis of knee, left: PLAN: Plan Patient is a 52-year-old male who presented to [facility] ED on 06/17/2023 with worsening left knee pain and swelling. 1. Left knee septic joint ? Presented with atraumatic acute left knee pain and swelling. Apparently noted a recent bug bite but otherwise no trauma recently. ? Knee x-ray in the ED showed large knee joint effusion with degenerative joint disease. Arthrocentesis was performed in the ED; 72 cc of yellow fluid was removed at that time. Fluid studies showed 56,000 white blood cells, neutrophil predominant. Patient notably afebrile and hemodynamically stable, normal WBC count on admit. ? ED physician discussed with Dr. Price with orthopedics who had concern for septic joint. Patient given vancomycin and ceftriaxone in the ED and these were continued on admission. ? Infectious disease following. Okay to continue vancomycin and ceftriaxone for now. Blood cultures and knee aspirate fluid cultures pending. Will follow-up intraoperative cultures once available as well. Per ID, suspect patient will need several weeks of IV antibiotics on discharge. ? Orthopedic surgery following. S/p left knee arthroscopic irrigation and debridement in the OR on 06/17. Per operative report, patricia purulent fluid was encountered during procedure. 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 Several areas were lavaged and cultures obtained. ? Per orthopedics, weightbearing and range of motion of the left knee as tolerated. Okay to continue Tylenol and oxycodone for pain relief. Ice and elevation of left knee. Outpatient follow-up with orthopedics in 2 weeks after discharge. Continue SCDs for DVT prophylaxis for now. ? Case management following for discharge needs. 2. History of hypertrophic cardiomyopathy ? Has reported history of hypertrophic cardiomyopathy, no echo results available in our system. Patient asymptomatic, notes that he had echo done because of a family history. Not on any medications. Continue outpatient cardiology follow-up. DVT prophylaxis: SCDs CODE STATUS: Full code, verified Expected disposition: TBD Total clinical time spent by myself addressing the patient's medical issues, reviewing all the data, and collaborating with patient's care team: 35 minutes. Charges/Coding Visit Charges Inpatient E&M: 03382 Subs Hosp L2
[2023-06-18] MEDS: Epinephrine (1 mg/ml) 1 MG/ML VIAL (14:29)
[2023-06-18] MEDS: Bupiv/Epi 0.25% 30 ML Vial (14:53)
--- NOTE | 2023-06-18 15:23 | OP.PCM_ITS ---
Report of Operation Date of Procedure: 06/18/23 Description of Surgical Findings:: Preoperative diagnosis: Left knee septic arthritis Postoperative diagnosis: Left knee septic arthritis Procedure: Left knee arthroscopic irrigation and debridement Surgeon: Jose M Mahan DO Anesthesia: General LMA Mastic Floor Layer: Aleksander Powers CRNA Estimated blood loss: 25 cc IV fluids: Per anesthesia record Urine output: None recorded Packing/drains: None Specimen: None Complications: None apparent Implants: None Indications: This is an otherwise healthy 52-year-old male galvez who developed atraumatic left knee pain and swelling 2 days ago. He was brought to the emergency department yesterday. He reported no injury or trauma to the knee. He did report questionable bug bite along the medial knee upon further questioning today. Arthrocentesis was performed in the emergency department. Purulent fluid was aspirated. Synovial white count was 56K with 94% PMNs. Cultures are pending to date. He was seen by my partner Dr. Golden Price last evening with plans to proceed with arthroscopic I&D today. I offered to assume care to expedite his case today. Patient and Dr. Price were amenable. I saw patient this morning prior to surgery. I confirmed the history and agreed arthroscopic I&D was indicated. I reviewed the risks, benefits, alternatives to the procedure with the patient. Risks included but were not limited to bleeding, infection, loss of life or limb, need for additional surgery, persistent pain, nonhealing wounds, persistent arthritis, persistent infection, damage to surrounding structures, neurovascular injury, DVT or PE, risk of anesthesia. Patient expressed understanding of these risks and wished to proceed with surgery. Description of procedure: Patient was identified in the preoperative holding area by name, medical record number, and date of . The operative extremities marked. All questions were answered to the patient's satisfaction. At time of his procedure, patient was brought to the operative suite positioned supine a standard operative table. General anesthesia was induced and LMA was placed. Left lower extremity was placed in arthroscopic leg elder. A well-leg elder was placed under the patient's right thigh. The foot of the bed was dropped 90 degrees. We prepped draped the left lower extremity in normal, sterile orthopedic fashion. We performed timeout with all parties in attendance in agreement with the side, site, and operation be performed. No concerns were voiced and we elected to proceed with surgery. I first established an anterolateral portal with a 15 blade scalpel. Blunt tipped trocar was used to introduce the arthroscopic cannula into the patellofemoral joint. Purulent fluid was encountered. Arthroscope was introduced. Thick purulent fluid in the suprapatellar pouch was noted. This was lavaged. I then placed the arthroscope in the medial compartment with a valgus stress applied to the knee. Medial portal was established with a 15 blade scalpel. Shaver was introduced to debride the synovitis encountered adjacent to Hoffa's fat pad. The medial compartment was then examined. 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 Degenerative meniscal tearing was noted. The tear was debrided with the arthroscopic shaver. Intercondylar notch was then examined and appeared pristine. Lateral compartment was entered with a [id number] stress. Lateral compartment was pristine. I then returned to the medial lateral gutters where synovitis was noted and was debrided with a radial resector. The patellofemoral joint was then examined and demonstrated grade 1?2 chondromalacia. I then turned my attention to the suprapatellar pouch. Synovitis was encountered and debrided with a radial resector. I then lavaged the knee with 9 L total of saline with epinephrine. Arthroscopic instruments were then removed. The knee was anesthetized with 30 cc total quarter percent bupivacaine with epinephrine. Portal sites were closed with interrupted [id number] 3-0 nylon suture. Bulky sterile compression dressing was applied. Patient was repositioned supine, safely extubated the operative suite and awoken. Was transferred to his hospital bed and subsequent to PACU in stable condition. Postoperative plan: Patient be transferred back to his hospital room under the care of his admitting provider Weightbearing and range of motion as tolerated left knee Oxycodone and Tylenol ordered for pain relief. Ice and elevation left knee Continue to follow cultures Antibiotics per primary/ID Maintain surgical dressing, compression to the left knee. Plan to follow-up in the outpatient setting in 2 weeks once he is stable for discharge for suture removal and clinical recheck. We will continue to follow during the inpatient stay.
[2023-06-19] MEDS: Enoxaparin 40 MG/0.4 ML Syringe SC (03:42)
[2023-06-19] MEDS: oxyCODONE 5 MG Tablet PO ×2 (03:42→20:21)
[2023-06-19 03:51] VITALS: BP 142/79; PULSE 72; RESP 18; TEMP 36.6; O2SAT 99
[2023-06-19 03:54] LABS: Hematocrit 37.9 % (40-54); Hemoglobin 12.6 g/dL (13.0-16.5); Mean Corp Hgb Conc 33.2 g/dL (32-36); Mean Corpuscular Hgb 30.2 pg (27.0-32.0); Mean Corpuscular Volume 90.9 fL (80-94); Mean Platelet Vol. 8.7 fl (6.2-12.0); Platelet Count 204 K/mm3 (150-450); RBC Distribution Width CV 13.3 % (11.6-14.6); RBC Distribution Width SD 45.1 fl (35.1-43.9); Red Blood Count 4.17 M/mm3 (4.6-6.2); White Blood Count 9.7 K/mm3 (4.4-11.0)
[2023-06-19 04:16] LABS: Anion Gap 5 (5-15); BUN 13 mg/dL (7-18); BUN/Creat Ratio 17.9 RATIO (10-20); Calcium,Total 8.8 mg/dL (8.5-10.1); Chloride 105 mmol/L (98-107); Creatinine, Serum 0.73 mg/dL (0.70-1.30); EST Glomerular Filtration Rate 119 mL/min (>60); Est Glom Filt Rate - Afr Amer 144 mL/min (>60); Glucose 120 mg/dL (74-106); Potassium 3.8 mmol/L (3.5-5.1); Sodium Level 137 mmol/L (136-145)
[2023-06-19 04:17] LABS: Vancomycin, Trough Level 9.2 ug/mL (5.0-15.0)
[2023-06-19] MEDS: Vancomycin HCl 1,250 MG in 0.9% Normal Saline (250mL Bag) 250 ML 167 MG IV ×3 (04:41→19:59)
[2023-06-19] MEDS: 0.9% Saline Lock 10 ML Syringe IV ×4 (04:41→19:59)
--- NOTE | 2023-06-19 04:44 | PCM.RX.CS ---
Consult Antibiotic Management Pharmacy has been consulted to manage selected antibiotic: Vancomycin Type of Intervention Type of Consult: Follow-up Suspected Infection Suspected Infection: Sepsis Labs Labs: Sodium 137 mmol/L (136-145) 06/19/23 03:35 Potassium 3.8 mmol/L (3.5-5.1) 06/19/23 03:35 Chloride 105 mmol/L (98-107) 06/19/23 03:35 Carbon Dioxide 27.0 mmol/L (21.0-32.0) 06/19/23 03:35 Anion Gap 5 (5-15) 06/19/23 03:35 BUN 13 mg/dL (7-18) 06/19/23 03:35 Creatinine 0.73 mg/dL (0.70-1.30) 06/19/23 03:35 Est GFR (MDRD) Af Amer 144 mL/min (>60) 06/19/23 03:35 Est GFR (MDRD) Non-Af 119 mL/min (>60) 06/19/23 03:35 BUN/Creatinine Ratio 17.9 RATIO (10-20) 06/19/23 03:35 Glucose 120 mg/dL (74-106) H 06/19/23 03:35 Vancomycin Trough 9.2 ug/mL (5.0-15.0) 06/19/23 03:35 Microbiology Microbiology: Microbiology 06/17/23 11:50 Fluid - Synovial (joint) Gram Stain - Final Dosing Weight Weight used for dosin kg Estimated Creatinine Clearance Estimated Creatinine Clearance: 107 Goal Trough Goal Trough: 15-20 mcg/mL Pharmacy Plan for Drug Dosing Pharmacy Plan for Drug Dosing: Vancomycin trough level of 9.2, drawn 10.7hrs post-dose, was below the target range of 15-20. Per dosing calculator increasing the frequency to 1250mg q8h should give an estimated new trough of 15.9. Will draw another trough prior to fourth dose of the new regimen. Pharmacy Service will continue to monitor and adjust dosing as required. Follow-Up Labs Follow-Up Labs: Trough: Vancomycin Date/Time Labs Ordered Labs to be done on [date and time ordered]: 06/20/23 @1200
[2023-06-19 07:53] VITALS: BP 115/81; PULSE 67; RESP 16; TEMP 36.6; O2SAT 97
[2023-06-19] MEDS: Ceftriaxone 2 GM in 0.9% Normal Saline (50mL MB+) 50 ML IV (09:00)
[2023-06-19 13:53] VITALS: BP 128/75; PULSE 72; RESP 12; TEMP 36.7; O2SAT 96
--- NOTE | 2023-06-19 15:21 | PCM.PN.ID ---
Physical Exam Narrative Feeling better, knee less sore, no fever Const alert and no apparent distress General Appearance: cooperative Resp normal air movement and clear to auscultation bilaterally Cardio regular rate and regular rhythm GI soft to palpation, non-tender and non-distended Skin Skin Narrative: No rash. ID ID: Route of nutrition/ use of supplements: [] Nutritional Intake: [] IV Site: [] Calabrese Catheter: [] Assessment & Plan Assessment/Plan (1) Septic arthritis of knee, left: PLAN: Tap shows 56k wbc, 91% neutrophils. Bcx ngtd. Fluid cx pending. Will cont vanc/ceftriaxone. OR 06/18/[address] Mahan with pus drained. Will follow, d/w primary team.
--- NOTE | 2023-06-19 16:29 | PN.ORTHO_ITS ---
Subjective Subjective Pt S&E. Pain improved. Denies F/C/N/V/SOB/CP. ROM improving. Anxious to go home. Out of bed using cane and able to bear weight. Objective Data Objective Data Vital Signs: Vital Signs Temp Pulse Resp BP Pulse Ox O2 Del Method 98.0 F 72 12 128/75 H 96 Room Air 06/19/23 13:53 06/19/23 13:53 06/19/23 13:53 06/19/23 13:53 06/19/23 13:53 06/19/23 13:53 Oxygen Delivery Method Room Air Weight: 143 lb 8 oz Body Mass Index (BMI) 21.8 Intake & Output: Intake and Output for Last 24 Hours 06/17/23 06/18/23 06/19/23 23:59 23:59 23:59 Intake Total 940 / 1180 841 / 1141 1000 / 1000 Output Total 275 / 275 Balance 940 / 1180 841 / 866 725 / 725 Lab / Micro Data 06/19/23 03:35 06/19/23 03:35 Labs: Laboratory Results - last 24 hr 06/19/23 03:35: WBC 9.7, RBC 4.17 L, Hgb 12.6 L, Hct 37.9 L, MCV 90.9, MCH 30.2, MCHC 33.2, RDW Std Deviation 45.1 H, RDW Coeff of Ramon 13.3, Plt Count 204, MPV 8.7, Sodium 137, Potassium 3.8, Chloride 105, Carbon Dioxide 27.0, Anion Gap 5, BUN 13, Creatinine 0.73, Estim Creat Clear Calc 106.50, Est GFR (MDRD) Af Amer 144, Est GFR (MDRD) Non-Af 119, BUN/Creatinine Ratio 17.9, Glucose 120 H, Calcium 8.8, Vancomycin Trough 9.2 Micro: Microbiology 06/17/23 15:10 Blood Culture (Wb) - Anticubital Right Blood Culture - Preliminary No growth in 48 hours. 06/17/23 15:00 Blood Culture (Wb) - Anticubital Left Blood Culture - Preliminary No growth in 48 hours. 06/17/23 11:50 Fluid - Synovial (joint) Gram Stain - Final 06/17/23 11:50 Fluid - Synovial (joint) Body Fluid Culture - Preliminary No growth-Final to follow 06/17/23 11:50 Fluid - Synovial (joint) Anaerobic Culture - Preliminary No growth in 48 hours. Physical Exam Narrative Gen -A&Ox3, NAD. VSS/AF LLE - Dressing C/D/I. No short arm ROM pain. 1+ effusion. DF/PF/EHL /. SILT L3-S1. DP 2+, BCR. Assessment & Plan Assessment/Plan (1) Septic arthritis of knee, left: PLAN: POD#1 s/p L knee arthroscopic I&D - Doing well. Continue IV abx. Cx NGTD, pending. Defer abx choice to ID/Primary. - Stable for dc once final abx recs are made by ID. - Dc instructions - recommending ASA 81mg BID for DVT ppx x 14 days post-op. F/u in 2 weeks @ [facility] for suture removal and recheck. Tylenol/NSAIDs for pain upon dc. Ice and elevate PRN. Continue compression left knee with TEDs. Ok to leave incision open to air on POD#2 if no drainage. Ok to shower POD#2. ROM/Weight bearing as tolerated. Advance activity as pain allows. I will sign off at this time. Please do not hesitate to call if any que stions/concerns arise.
[2023-06-19 20:00] VITALS: BP 121/69; PULSE 72; RESP 16; TEMP 36.6; O2SAT 95
--- NOTE | 2023-06-19 20:14 | PCM.PN.HOSP ---
Reason for Visit Reason for Visit: Diagnoses Pyogenic arthritis, unspecified (06/17/23) Effusion, left knee (06/17/23) Pain in left knee (06/17/23) Subjective Subjective Patient was seen and examined today, I talked with his who was present at time my examination and I discussed his care with infectious diseases and orthopedic surgery. Infectious diseases feels that the patient needs to be on IV antibiotics and await final culture results. Objective Data Objective Data Vital Signs: Vital Signs Temp Pulse Resp BP Pulse Ox O2 Del Method 98.0 F 72 12 128/75 H 96 Room Air 06/19/23 13:53 06/19/23 13:53 06/19/23 13:53 06/19/23 13:53 06/19/23 13:53 06/19/23 13:53 Oxygen Delivery Method Room Air Weight: 65.091 kg Body Mass Index (BMI) 21.8 Intake & Output: Intake and Output for Last 24 Hours 06/17/23 06/18/23 06/19/23 23:59 23:59 23:59 Intake Total 940 / 1180 841 / 1141 1250 / 1250 Output Total 275 / 275 Balance 940 / 1180 841 / 866 975 / 975 Lab / Micro Data 06/19/23 03:35 06/19/23 03:35 Labs: Laboratory Results - last 24 hr 06/19/23 03:35: WBC 9.7, RBC 4.17 L, Hgb 12.6 L, Hct 37.9 L, MCV 90.9, MCH 30.2, MCHC 33.2, RDW Std Deviation 45.1 H, RDW Coeff of Ramon 13.3, Plt Count 204, MPV 8.7, Sodium 137, Potassium 3.8, Chloride 105, Carbon Dioxide 27.0, Anion Gap 5, BUN 13, Creatinine 0.73, Estim Creat Clear Calc 106.50, Est GFR (MDRD) Af Amer 144, Est GFR (MDRD) Non-Af 119, BUN/Creatinine Ratio 17.9, Glucose 120 H, Calcium 8.8, Vancomycin Trough 9.2 Micro: Microbiology 06/17/23 15:10 Blood Culture (Wb) - Anticubital Right Blood Culture - Preliminary No growth in 48 hours. 06/17/23 15:00 Blood Culture (Wb) - Anticubital Left Blood Culture - Preliminary No growth in 48 hours. 06/17/23 11:50 Fluid - Synovial (joint) Gram Stain - Final 06/17/23 11:50 Fluid - Synovial (joint) Body Fluid Culture - Preliminary No growth-Final to follow 06/17/23 11:50 Fluid - Synovial (joint) Anaerobic Culture - Preliminary No growth in 48 hours. Physical Exam Const alert, oriented x3, no apparent distress and healthy appearing General Appearance: cooperative, well kempt and well developed Orientation / Consciousness: awake, oriented to person, oriented to place and oriented to time HEENT normocephalic, head/scalp atraumatic and moist oral mucous membranes Eyes PERRL, EOMs intact bilaterally and conjunctivae normal Neck supple, no JVD, thyroid normal and no carotid bruits General: trachea midline Resp normal respiratory effort, no retractions, no use of accessory muscles and clear to auscultation bilaterally Auscultation: Negative for rales, rhonchi or wheezes Cardio regular rate, regular rhythm, no murmurs, no rub and no gallops GI normal to inspection, nondistended, normoactive bowel sounds, soft to palpation, non-tender and non-distended Extremity Extremity Narrative: Patient's left knee is wrapped with an Dipak wrap, this was not removed for examination of the area Skin no rashes or lesions noted Neuro oriented x3, CN's II-XII intact bilaterally, moves all extremities, no focal motor deficits and no sensory deficits noted Sensorium / Orientation: awake and alert Speech: speech normal Psych affect normal Assessment & Plan Assessment/Plan (1) Septic arthritis of knee, left: PLAN: Plan 1. Septic arthritis of the left knee-patient remains on antibiotic coverage per infectious diseases, there has been no growth in 48 hours from the patient's blood culture and body fluid culture. Total clinical time spent by myself addressing the patient's medical issues, reviewing all of his data, and collaborating with patient's care team: 25 minutes Charges/Coding Visit Charges Inpatient E&M: 51303 Subs Hosp L1
[2023-06-19] MEDS: Acetaminophen 325 MG Tablet 650 MG PO (20:22)
[2023-06-20 05:00] VITALS: BP 112/74; PULSE 71; RESP 16; TEMP 36.6; O2SAT 96
[2023-06-20] MEDS: Vancomycin HCl 1,250 MG in 0.9% Normal Saline (250mL Bag) 250 ML 167 MG IV ×3 (05:11→21:09)
[2023-06-20] MEDS: Enoxaparin 40 MG/0.4 ML Syringe SC (05:12)
[2023-06-20] MEDS: Ceftriaxone 2 GM in 0.9% Normal Saline (50mL MB+) 50 ML IV (10:34)
[2023-06-20 11:00] VITALS: BP 113/65; PULSE 80; RESP 16; TEMP 36.4; O2SAT 94
[2023-06-20 12:16] LABS: Vancomycin, Trough Level 19.8 ug/mL (5.0-15.0)
--- NOTE | 2023-06-20 12:26 | PCM.RX.CS ---
Consult Antibiotic Management Pharmacy has been consulted to manage selected antibiotic: Vancomycin Type of Intervention Type of Consult: Follow-up Labs Labs: Sodium 137 mmol/L (136-145) 06/19/23 03:35 Potassium 3.8 mmol/L (3.5-5.1) 06/19/23 03:35 Chloride 105 mmol/L (98-107) 06/19/23 03:35 Carbon Dioxide 27.0 mmol/L (21.0-32.0) 06/19/23 03:35 Anion Gap 5 (5-15) 06/19/23 03:35 BUN 13 mg/dL (7-18) 06/19/23 03:35 Creatinine 0.73 mg/dL (0.70-1.30) 06/19/23 03:35 Est GFR (MDRD) Af Amer 144 mL/min (>60) 06/19/23 03:35 Est GFR (MDRD) Non-Af 119 mL/min (>60) 06/19/23 03:35 BUN/Creatinine Ratio 17.9 RATIO (10-20) 06/19/23 03:35 Glucose 120 mg/dL (74-106) H 06/19/23 03:35 Vancomycin Trough 19.8 ug/mL (5.0-15.0) H 06/20/23 11:47 Microbiology Microbiology: Microbiology 06/17/23 15:10 Blood Culture (Wb) - Anticubital Right Blood Culture - Preliminary No growth in 48 hours. 06/17/23 15:00 Blood Culture (Wb) - Anticubital Left Blood Culture - Preliminary No growth in 48 hours. 06/17/23 11:50 Fluid - Synovial (joint) Gram Stain - Final 06/17/23 11:50 Fluid - Synovial (joint) Body Fluid Culture - Preliminary No growth-Final to follow 06/17/23 11:50 Fluid - Synovial (joint) Anaerobic Culture - Preliminary No growth in 48 hours. Pharmacy Plan for Drug Dosing Pharmacy Plan for Drug Dosing: VANCOMYCIN LEVEL RECEIVED Current Vancomycin Dose: 1250mg IV Q8h Number of Doses Received: 3 (of current regimen) Vancomycin Level: 19.8 Hours Since Last Dose: 6.5hr Renal Function: 0.73 Renal Function Trend: stable Vancomycin Plan/Comments: Patient had a trough drawn which resulted in a value of 19.8 (goal 15-20). Patient's trough is within therapeutic goal. Will continue current dose of vancomycin and recheck a trough in 24hrs. Pending Level: 06/21/23 @1200 Pharmacy Service will continue to monitor and adjust dosing as required.
[2023-06-20] MEDS: Vancomycin Trough/Random Due 1 LAB MC (13:54)
--- NOTE | 2023-06-20 14:18 | PCM.PN.HOSP ---
Reason for Visit Reason for Visit: Diagnoses Pyogenic arthritis, unspecified (06/17/23) Effusion, left knee (06/17/23) Pain in left knee (06/17/23) Subjective Subjective Patient was seen and examined today, he continues to receive IV antibiotics, blood cultures and body fluid culture again shows no growth so far. Objective Data Objective Data Vital Signs: Vital Signs Temp Pulse Resp BP Pulse Ox O2 Del Method 97.6 F L 80 16 113/65 94 Room Air 06/20/23 11:00 06/20/23 11:00 06/20/23 11:00 06/20/23 11:00 06/20/23 11:00 06/20/23 11:00 Oxygen Delivery Method Room Air Weight: 65.091 kg Body Mass Index (BMI) 21.8 Intake & Output: Intake and Output for Last 24 Hours 06/18/23 06/19/23 06/20/23 23:59 23:59 23:59 Intake Total 841 / 1141 1525 / 1525 1324 / 1324 Output Total 275 / 275 Balance 841 / 866 1250 / 1250 1324 / 1324 Lab / Micro Data 06/19/23 03:35 06/19/23 03:35 Labs: Laboratory Results - last 24 hr 06/20/23 11:47: Vancomycin Trough 19.8 H Micro: Microbiology 06/17/23 15:10 Blood Culture (Wb) - Anticubital Right Blood Culture - Preliminary No growth in 48 hours. 06/17/23 15:00 Blood Culture (Wb) - Anticubital Left Blood Culture - Preliminary No growth in 48 hours. 06/17/23 11:50 Fluid - Synovial (joint) Gram Stain - Final 06/17/23 11:50 Fluid - Synovial (joint) Body Fluid Culture - Preliminary No growth-Final to follow 06/17/23 11:50 Fluid - Synovial (joint) Anaerobic Culture - Preliminary No growth in 48 hours. Physical Exam Narrative alert, oriented x3, no apparent distress and healthy appearing General Appearance: cooperative, well kempt and well developed Orientation / Consciousness: awake, oriented to person, oriented to place and oriented to time HEENT normocephalic, head/scalp atraumatic and moist oral mucous membranes Eyes PERRL, EOMs intact bilaterally and conjunctivae normal Neck supple, no JVD, thyroid normal and no carotid bruits General: trachea midline Resp normal respiratory effort, no retractions, no use of accessory muscles and clear to auscultation bilaterally Auscultation: Negative for rales, rhonchi or wheezes Cardio regular rate, regular rhythm, no murmurs, no rub and no gallops GI normal to inspection, nondistended, normoactive bowel sounds, soft to palpation, non-tender and non-distended Extremity Extremity Narrative: Patient's left knee is wrapped with an Dipak wrap, this was not removed for examination of the area Skin no rashes or lesions noted Neuro oriented x3, CN's II-XII intact bilaterally, moves all extremities, no focal motor deficits and no sensory deficits noted Sensorium / Orientation: awake and alert Speech: speech normal Psych affect normal Assessment & Plan Assessment/Plan (1) Septic arthritis of knee, left: PLAN: Plan 1. Septic arthritis of the left knee-patient remains on antibiotic coverage per infectious diseases, there has been no growth so far and the patient's blood culture and fluid culture from his knee Total clinical time spent by myself addressing the patient's medical issues, reviewing all of his data, and collaborating with patient's care team: 25 minutes Charges/Coding Visit Charges Inpatient E&M: 92742 [facility] Hosp L1
[2023-06-20 17:00] VITALS: BP 115/66; PULSE 85; RESP 16; TEMP 36.6; O2SAT 96
[2023-06-20] MEDS: Acetaminophen 325 MG Tablet 650 MG PO (21:15)
[2023-06-20 22:00] VITALS: RESP 16
[2023-06-20 22:55] VITALS: BP 113/76; PULSE 64; RESP 14; TEMP 37; O2SAT 98
[2023-06-21] MEDS: Vancomycin HCl 1,250 MG in 0.9% Normal Saline (250mL Bag) 250 ML 167 MG IV ×2 (04:27→13:13)
[2023-06-21] MEDS: Acetaminophen 325 MG Tablet 650 MG PO (04:30)
[2023-06-21] MEDS: Enoxaparin 40 MG/0.4 ML Syringe SC (06:43)
[2023-06-21 08:00] VITALS: BP 122/68; PULSE 68; RESP 18; TEMP 36.3; O2SAT 96
--- NOTE | 2023-06-21 08:42 | DCINST_ITS ---
Discharge Instructions Diet Discharge Diet: No restrictions Activity Discharge Activity: Return to Normal Activity Weight Bearing Status: Full weight bearing Follow Up Care Test Results: Test results from this visit will be discussed in further detail at your follow- up appointment, if applicable. Discharge Plan Admission Admit Date/Time: 06/17/23 15:35 Primary Reason for Your Visit: Left knee effusion Attending Provider: Babatunde Jaffe Primary Care Provider: Care Physician,No Primary Consulting Providers: Barrington Dudley; Kel Lindsay; Golden Price; Jama Daniels Instructions Additional Instructions / Restrictions: Keep the left knee clean and dry, clean with soap and water daily, notify Dr. Mahan if you have significant pain or significant swelling in the left knee, contact him also if you have any fevers or chills. Discharge Orders/Prescriptions Prescriptions: No Action NK Referrals / Follow Up: Jose M Mahan DO [Med Staff - Active Staff] - See Referral Note (Call the office Thursday to make an appointment for 2 weeks for follow-up) Care Physician,No Primary [Primary Care Provider] - Disposition Disposition (needs filled in before D/C Order can be placed): Home, Self Care
--- NOTE | 2023-06-21 08:44 | DS.PCM_ITS ---
Providers Date of Admission: 06/17/23 Primary Care Physician: Soheila Primary Care Phys Consultations 06/17/23 16:29 Consult: Infectious Disease Routine Consulting Provider: Kel Lindsay Reason for Consult: questionable septic knee, left EMERGENT Consult: No Notified: Yes Date Notified: 06/17/23 Time Notified: 15:38 Method of Notification: Text Consult: Orthopedics Routine Consulting Provider: Golden Price Reason for Consult: left knee effusion EMERGENT Consult: No Notified: Yes Date Notified: 06/17/23 Time Notified: 15:38 Method of Notification: ED Physician Initiated Reason For Visit: LEFT KNEE EFFUSION Diagnosis Discharge Diagnosis (1) Septic arthritis of knee, left: Status: Acute Code(s): M00.9 - Pyogenic arthritis, unspecified Plan 1. Septic arthritis of the left knee-patient remains on antibiotic coverage per infectious diseases, there has been no growth so far and the patient's blood culture and fluid culture from his knee Total clinical time spent by myself addressing the patient's medical issues, reviewing all of his data, and collaborating with patient's care team: 25 minutes Medications at Discharge Home Medications NK 06/17/23 Hospital Course Operations - (Left knee arthroscopic irrigation and debridement) Procedures None Summary of Care Provided Minutes Spent on Discharge: 30 Hospital Course: This 52-year-old white male was seen in the emergency room at [facility] with complaints of left knee pain and swelling, symptoms had started the day before and had progressed. Patient denied any trauma, patient was evaluated in the emergency room, and arthrocentesis was performed that showed a white count of 5600. Patient was given vancomycin and ceftriaxone in the emergency room, he was seen in consultation by orthopedic surgery and underwent arthroscopic irrigation and debridement. Cultures of the fluid were -48 hours, patient was afebrile during his hospitalization and his white blood cell count was normal. On 06/21/2023, patient was seen and examined: On examination he appeared in good health and spirits. Vital signs as documented. Skin warm and dry and without overt rashes. Neck without JVD, neck was supple, trachea midline, thyroid was normal. Lungs clear bilaterally, normal air movement was noted. Heart exam notable for regular rhythm, normal sounds and absence of murmurs, rubs or gallops. Abdomen unremarkable and without evidence of organomegaly, masses, or abdominal aortic enlargement. Bowel sounds are present, abdomen is not distended. Extremities nonedematous, no cyanosis was noted, no clubbing was noted. There is a slight effusion noted over the left knee, no significant redness was noted. Neuro: Cranial nerves II through XII are grossly intact, no focal motor deficits were noted, sensation to light touch and pinprick intact, motor exam 5/5 throughout. Psych: Patient is alert and oriented x3, he does not appear anxious or depressed, he does not appear agitated. I talked with infectious diseases by phone on 06/21/2023, they felt based on the conversation I had with them that the patient could be discharged on no antibiotics. Patient was instructed to watch for any signs of infection such as increased swelling or redness or fever or chills at home and to call orthopedics if this happened. Patient was to follow-up with orthopedic surgery in 2 weeks, I also talked with Dr. Mahan who did his surgery and let him know that the patient was being discharged. Patient appears stable for discharge on 06/21/2023. Weight / BMI Weight Weight: 65.091 kg Body Mass Index (BMI) 21.8 ABG / Lab / Microbiology Data 06/19/23 03:35 06/19/23 03:35 Laboratory: Laboratory Results - last 24 hr 06/20/23 11:47: Vancomycin Trough 19.8 H Microbiology: Microbiology 06/17/23 15:10 Blood Culture (Wb) - Anticubital Right Blood Culture - Preliminary No growth in 48 hours. 06/17/23 15:00 Blood Culture (Wb) - Anticubital Left Blood Culture - Preliminary No growth in 48 hours. 06/17/23 11:50 Fluid - Synovial (joint) Gram Stain - Final 06/17/23 11:50 Fluid - Synovial (joint) Body Fluid Culture - Preliminary No growth-Final to follow 06/17/23 11:50 Fluid - Synovial (joint) Anaerobic Culture - Preliminary No growth in 48 hours. D/C Instructions Discharge Diet: No restrictions Weight Bearing Status: Full weight bearing Meaningful Use Info Meaningful Use Diagnoses (Choose all that apply): None applicable Discharge Plan Admission Admit Date/Time: 06/17/23 15:35 Primary Reason for Your Visit: Left knee effusion Attending Provider: Babatunde Jaffe Primary Care Provider: Care Physician,No Primary Consulting Providers: Barrington Dudley; Kel Lindsay; Golden Price; Jama Daniels Instructions Additional Instructions / Restrictions: Keep the left knee clean and dry, clean with soap and water daily, notify Dr. Mahan if you have significant pain or significant swelling in the left knee, contact him also if you have any fevers or chills. Discharge Orders/Prescriptions Prescriptions: No Action NK Referrals / Follow Up: Jose M Mahan DO [Med Staff - Active Staff] - See Referral Note (Call the office Thursday to make an appointment for 2 weeks for follow-up) Care Physician,No Primary [Primary Care Provider] - Disposition Disposition (needs filled in before D/C Order can be placed): Home, Self Care Charges/Coding Visit Charges Inpatient E&M: 12550 Disch Hosp
[2023-06-21] MEDS: Ceftriaxone 2 GM in 0.9% Normal Saline (50mL MB+) 50 ML IV (09:23)
[2023-06-21] MEDS: 0.9% Saline Lock 10 ML Syringe IV (09:23)
[2023-06-21 12:27] LABS: Vancomycin, Trough Level 19.9 ug/mL (5.0-15.0)
--- NOTE | 2023-06-21 13:00 | PCM.RX.CS ---
Consult Antibiotic Management Pharmacy has been consulted to manage selected antibiotic: Vancomycin Type of Intervention Type of Consult: Follow-up Labs Labs: Sodium 137 mmol/L (136-145) 06/19/23 03:35 Potassium 3.8 mmol/L (3.5-5.1) 06/19/23 03:35 Chloride 105 mmol/L (98-107) 06/19/23 03:35 Carbon Dioxide 27.0 mmol/L (21.0-32.0) 06/19/23 03:35 Anion Gap 5 (5-15) 06/19/23 03:35 BUN 13 mg/dL (7-18) 06/19/23 03:35 Creatinine 0.73 mg/dL (0.70-1.30) 06/19/23 03:35 Est GFR (MDRD) Af Amer 144 mL/min (>60) 06/19/23 03:35 Est GFR (MDRD) Non-Af 119 mL/min (>60) 06/19/23 03:35 BUN/Creatinine Ratio 17.9 RATIO (10-20) 06/19/23 03:35 Glucose 120 mg/dL (74-106) H 06/19/23 03:35 Vancomycin Trough 19.9 ug/mL (5.0-15.0) H 06/21/23 11:40 Microbiology Microbiology: Microbiology 06/17/23 15:10 Blood Culture (Wb) - Anticubital Right Blood Culture - Preliminary No growth in 48 hours. 06/17/23 15:00 Blood Culture (Wb) - Anticubital Left Blood Culture - Preliminary No growth in 48 hours. 06/17/23 11:50 Fluid - Synovial (joint) Gram Stain - Final 06/17/23 11:50 Fluid - Synovial (joint) Body Fluid Culture - Preliminary No growth-Final to follow 06/17/23 11:50 Fluid - Synovial (joint) Anaerobic Culture - Preliminary No growth in 48 hours. Goal Trough Goal Trough: 15-20 mcg/mL Pharmacy Plan for Drug Dosing Pharmacy Plan for Drug Dosing: VANCOMYCIN LEVEL RECEIVED Current Vancomycin Dose: 1250mg IV Q8h Number of Doses Received: 7 (of scheduled regimen) Vancomycin Level: 19.9 Hours Since Last Dose: ~7hrs Renal Function: 0.73 Renal Function Trend: stable Lab/Micro: ngtd Vancomycin Plan/Comments: Patient had a trough drawn which resulted in a value of 19.9 (goal 15-20). The patient's trough is within therapeutic goal. Since the patient has been therapeutic on this dose x2, will push trough out 2 days to reassess. Continue 1250mg IV Q8h Pending Level: 06/23/23 @1200 Pharmacy Service will continue to monitor and adjust dosing as required.
[2023-06-21 13:45] VITALS: BP 124/64; PULSE 69; RESP 16; TEMP 36.4; O2SAT 98
== END 2023-06-21 13:53 | disposition home or self-care (01) | DRG 549 ==
LOC: ED 14:52 → PCU 16:20
PROVIDERS: Hospitalist; Internal Medicine; Orthopaedic Surgery; Student in an Organized Health Care Education/Training Program; Emergency Provider Emergency Medicine; Visit Provider Internal Medicine
PROC: 0HDLXZZ Extraction of Left Lower Leg Skin, External Approach (ICD-10-PCS; CPT 29870; principal; 2023-06-18 12:40)
DX: M00.9 Pyogenic arthritis, unspecified (principal); I42.2 Other hypertrophic cardiomyopathy; M65.869 Other synovitis and tenosynovitis, unspecified lower leg; M19.90 Unspecified osteoarthritis, unspecified site; M25.462 Effusion, left knee; M94.29 Chondromalacia, multiple sites
CPT/HCPCS: 36415; 80048; 80202; 85025; 85027; 85652; 86140; 87040; 87070; 87075; 87205; 89050; 89051; 89060; 93005; 94668; 99284; J7030; J7040; J7050; J7120; A4216; J2405